=== PATIENT | male | born 2000 | race Caucasian/White ===

== ENCOUNTER 2018-12-31 15:24 | Emergency (ER) | payer OTHER ==
[2018-12-31] MEDS ORDERED: Lidocaine 1% MPF* 2 ML VIAL INJ ONE (17:13)
[2018-12-31] MEDS ORDERED: Lidocaine 1% INJ* 10 MG/ML 30 ML SDV ONE (17:16)
--- NOTE | 2018-12-31 17:44 | ED ---
Upper Extremity Pain - HPI Summary HPI Summary: This patient is an otherwise healthy 18-year-old male presenting to the ED with a distal radius fracture from [facility] now urgent care. Patient states he was playing Lacrosse when he injured his right arm, falling out on an outstretched hand. He was seen at urgent care and sent here for further evaluation by an orthopedic physician due to the intra-articular surface extension. Patient is endorsing a 5/10 pain. He denies any numbness or tingling. He denies any color or temperature changes. He has never injured the arm in the past. He has not taken any medication prior to arrival. - History of Current Complaint Chief Complaint: EDExtremityUpper Stated Complaint: RT ARM INJURY PER PT Time Seen by Provider: 12/31/18 15:52 Hx Obtained From: Patient Onset/Duration: Started Hours Ago Timing: Constant Severity Initially: Moderate Severity Currently: Moderate Pain Location: Forearm Character: Aching Aggravating Factor(s): Nothing Alleviating Factor(s): Nothing Associated Signs & Symptoms: Positive: Negative Related History: Dominant Hand Right - Risk Factors Non-Orthopedic Risk Factor: Negative DVT Risk Factors: Negative Septic Arthritis Risk Factor: Negative - Allergies/Home Medications Allergies/Adverse Reactions: Allergies Allergy/AdvReac Type Severity Reaction Status Date / Time No Known Allergies Allergy Verified 12/31/18 15:39 PMH/Surg Hx/FS Hx/Imm Hx Previously Healthy: Yes - Immunization History Hx Pertussis Vaccination: No Immunizations Up to Date: Yes Infectious Disease History: No Infectious Disease History: Denies: Traveled Outside the [place] in Last 30 Days - Social History Occupation: Unemployed Lives: Dormitory/Roommates Alcohol Use: Weekly Alcohol Amount: on weekends Substance Use Type: Reports: Marijuana Hx Tobacco Use: No Smoking Status (MU): Never Smoked Tobacco Review of Systems Negative: Fever, Chills, Fatigue Negative: Palpitations, Chest Pain Negative: Shortness Of Breath, Cough Genitourinary: Negative Positive: no symptoms reported, see HPI Positive: Arthralgia Skin: Negative All Other Systems Reviewed And Are Negative: Yes Physical Exam Triage Information Reviewed: Yes Vital Signs On Initial Exam: Initial Vitals Temp Pulse Resp BP Pulse Ox 99.7 F 51 16 125/73 97 12/31/18 15:35 12/31/18 15:35 12/31/18 15:35 12/31/18 15:35 12/31/18 15:35 Vital Signs Reviewed: Yes Appearance: Positive: Well-Appearing, Well-Nourished Skin: Positive: Warm, Skin Color Reflects Adequate Perfusion Head/Face: Positive: Normal Head/Face Inspection Eyes: Positive: EOMI, YELENA, Conjunctiva Clear Neck: Positive: Supple, No Lymphadenopathy Respiratory/Lung Sounds: Positive: Clear to Auscultation, Breath Sounds Present Cardiovascular: Positive: RRR, Pulses are Symmetrical in both Upper and Lower Extremities Musculoskeletal: Positive: Pain @ - right wrist pain with obvious deformity Neurological: Positive: Sensory/Motor Intact Diagnostics - Vital Signs Vital Signs Temp Pulse Resp BP Pulse Ox 12/31/18 15:35 99.7 F 51 16 125/73 97 - Laboratory Lab Statement: Any lab studies that have been ordered have been reviewed, and results considered in the medical decision making process. Course/Dx - Course Course Of Treatment: Discussed case with Dr. Correa, orthopedist who recommends hematoma block as well as plaster splint. Long-arm sugar tong splint applied. Patient tolerated well. Neurovascularly intact pre-and post- fabricated splint. Patient will follow-up with Dr. Correa this week. - Diagnoses Differential Diagnosis/HQI/PQRI: Positive: Fracture (Closed), Strain, Sprain Provider Diagnoses: Distal radius fracture Discharge ED - Sign-Out/Discharge Documenting (check all that apply): Patient Departure Patient Received Moderate/Deep Sedation with Procedure: No - Discharge Plan Condition: Stable Disposition: HOME Patient Education Materials: Wrist Fracture in Adults (ED) Referrals: No Primary Care Phys,NOPCP [Primary Care Provider] - Cassandra Alexandra MD [Medical Doctor] - Additional Instructions: Follow up with orthopedics next week Call for an appt - Billing Disposition and Condition Condition: STABLE Disposition: Home
[2018-12-31 17:56] VITALS: BP 125/56
== END 2018-12-31 17:59 | disposition home or self-care (01) ==
LOC: ED 15:24
DX: S52.501A Unspecified fracture of the lower end of right radius, initial encounter for closed fracture (principal); W19.XXXA Unspecified fall, initial encounter; Y93.65 Activity, lacrosse and field hockey; Y92.9 Unspecified place or not applicable
CPT/HCPCS: 99282